=== PATIENT | male | born 1990 | race American Indian/Alaskan Native ===

== ENCOUNTER 2017-09-02 09:50 | Emergency (ER) | payer BC, MEDICAID ==
--- NOTE | 2017-09-02 10:07 | EDM.PDOC ---
ED HPI GENERAL MEDICAL PROBLEM - General Chief Complaint: Skin Complaint Stated Complaint: RASH ON BODY Time Seen by Provider: 09/02/17 10:06 Source of Information: Reports: Patient, Family, RN, RN Notes Reviewed History Limitations: Reports: No Limitations - History of Present Illness INITIAL COMMENTS - FREE TEXT/NARRATIVE: Patient presents to the ER with his girlfriend with c/o an itchy rash to the arms, legs, and trunk. He states he was cutting yellow potatoes yesterday when this began. He states he has not had any issues with potatoes in the past. Girlfriend states they started using a new body wash a week or 2 ago, Aveeno with yogurt. Pt denies any other allergies or health problems. Onset: Sudden Onset Date: 09/01/17 Duration: Getting Worse Location: Reports: Generalized Severity: Mild Improves with: Reports: None Worsens with: Reports: None Associated Symptoms: Reports: No Other Symptoms - Related Data Allergies Allergy/AdvReac Type Severity Reaction Status Date / Time No Known Allergies Allergy Verified 09/02/17 10:01 Home Meds: Home Meds . [No Known Home Meds] 10/12/13 [History] Past Medical History - Past Health History Medical/Surgical History: Denies Medical/Surgical History HEENT History: Reports: None Cardiovascular History: Reports: None Respiratory History: Reports: None Gastrointestinal History: Reports: None Genitourinary History: Reports: None Musculoskeletal History: Reports: None Neurological History: Reports: None Psychiatric History: Reports: None Endocrine/Metabolic History: Reports: None Hematologic History: Reports: None Immunologic History: Reports: None Oncologic (Cancer) History: Reports: None Dermatologic History: Reports: None - Infectious Disease History Infectious Disease History: Reports: Chicken Pox - Past Surgical History Head Surgeries/Procedures: Reports: None Social & Family History - Tobacco Use Smoking Status *Q: Current Every Day Smoker Years of Tobacco use: 12 Packs/Tins Daily: 0.5 Used Tobacco, but Quit: No Second Hand Smoke Exposure: Yes - Caffeine Use Caffeine Use: Reports: Energy Drinks - Alcohol Use Days Per Week of Alcohol Use: 0 - Recreational Drug Use Recreational Drug Use: No ED ROS GENERAL - Review of Systems Review Of Systems: ROS reveals no pertinent complaints other than HPI. ED EXAM, SKIN/RASH Exam: See Below Exam Limited By: No Limitations General Appearance: Alert, WD/WN, No Apparent Distress Eye Exam: Bilateral Eye: EOMI, Normal Inspection, PERRL Ears: Normal External Exam, Hearing Grossly Normal Nose: Normal Inspection Throat/Mouth: Normal Inspection, Normal Voice, No Airway Compromise Head: Atraumatic, Normocephalic Neck: Normal Inspection, Supple, Non-Tender, Full Range of Motion Respiratory/Chest: No Respiratory Distress, Lungs Clear, Normal Breath Sounds, No Accessory Muscle Use, Chest Non-Tender Cardiovascular: Normal Peripheral Pulses, Regular Rate, Rhythm, No Edema, No Gallop, No JVD, No Murmur, No Rub Peripheral Pulses: 2+: Radial (L), Radial (R) GI/Abdominal: Normal Bowel Sounds, Soft, Non-Tender, No Organomegaly, No Distention, No Abnormal Bruit, No Mass (Male) Exam: Deferred Rectal (Males) Exam: Deferred Back Exam: Normal Inspection, Full Range of Motion, NT Extremities: Normal Inspection, Normal Range of Motion, Non-Tender, No Pedal Edema, Normal Capillary Refill Neurological: Alert, Oriented, CN II-XII Intact, Normal Cognition, Normal Gait, Normal Reflexes, No Motor/Sensory Deficits Psychiatric: Normal Affect, Normal Mood Skin: Warm, Dry. No: No Rash (patchy erythematous, pruritic rash, generalized arms, legs, and trunk. ) Location, Skin: Abdomen, Back, Upper Extremity, Right, Upper Extremity, Left, Lower Extremity, Right, Lower Extremity, Left Characteristics: Macular, Fine, Patchy, Urticarial, Erythematous Lymphatic: No Adenopathy Course - Vital Signs Last Recorded V/S: Last Vital Signs Temp 97.6 F 09/02/17 09:57 Pulse 88 09/02/17 09:57 Resp 16 09/02/17 09:57 BP 126/81 09/02/17 09:57 Pulse Ox 100 09/02/17 09:57 - Orders/Labs/Meds Meds: Medications Discontinued Medications Generic Name Dose Route Start Last Admin Trade Name Jacobo PRN Reason Stop Dose Admin Diphenhydramine HCl 50 mg 09/02/17 10:10 09/02/17 10:16 Benadryl PO 09/02/17 10:11 50 mg ONETIME ONE Administration Departure - Departure Time of Disposition: 10:16 Disposition: Home, Self-Care 01 Condition: Fair Clinical Impression: Atopic dermatitis Qualifiers: Atopic dermatitis type: unspecified Qualified Code(s): L20.9 - Atopic dermatitis, unspecified Allergic reaction Qualifiers: Encounter type: initial encounter Qualified Code(s): T78.40XA - Allergy, unspecified, initial encounter - Discharge Information Instructions: Pruritus, Rash, Contact Dermatitis, [id number] Forms: ED Department Discharge Additional Instructions: Benadryl as directed Benadryl cooling gel or Calamine lotion to the areas as directed Follow up with your primary care facility as necessary Return to the ER with any worsening of reaction, swelling of mouth/tongue, or shortness of breath
[2017-09-02] MEDS ORDERED: diphenhydrAMINE 50 MG Cap PO ONE (10:10)
== END 2017-09-02 10:23 | disposition home or self-care (01) ==
LOC: DL.ED 09:50
DX: L20.9 Atopic dermatitis, unspecified (principal); F17.210 Nicotine dependence, cigarettes, uncomplicated
CPT/HCPCS: 99282; Q0163